=== PATIENT | male | born 1955 | race Caucasian/White ===

== ENCOUNTER 2019-06-16 10:24 | Emergency (ER) | payer OTHER ==
[~2019-06-16] VITALS: Ht 165.1 cm; Wt 54.4 kg
[2019-06-16 10:44] LABS: BASOPHILS % (AUTO) 0.3 % (0.0-2.0); EOSINOPHILS % (AUTO) 0.3 % (0.0-6.0); HEMATOCRIT 43 % (39-51); HEMOGLOBIN 14.3 g/dL (13.5-17.5); LYMPHOCYTES # (AUTO) 1.1 /CMM (0.8-4.8); LYMPHOCYTES % (AUTO) 13.4 % (20.0-44.0); MEAN CORPUSCULAR HGB CONC 34 g/dl (31.0-36.0); MEAN CORPUSCULAR VOLUME 94 fL (80-96); MONOCYTES # (AUTO) 0.7 /CMM (0.1-1.30); MONOCYTES % (AUTO) 9.4 % (2.0-12.0); NEUTROPHILS % (AUTO) 76.6 % (43.0-81.0); PLATELET COUNT (AUTO) 253 /CMM (150-450); RED BLOOD CELL COUNT(AUTO) 4.54 MIL/uL (4.5-6.0); WHITE BLOOD COUNT (AUTO) 7.8 K/uL (4.3-11.0)
[2019-06-16 10:51] LABS: CALCIUM, SERUM 9.7 mg/dL (8.5-10.1); CARBON DIOXIDE 19 mmol/L (21-32); CHLORIDE 99 mmol/L (98-107); CREATININE 0.9 mg/dL (0.6-1.3); GLUCOSE 119 mg/dL (74-106); POTASSIUM 4.6 mmol/L (3.5-5.1); SODIUM SERUM 135 mmol/L (136-145); UREA NITROGEN, BLOOD 11 mg/dL (7-18)
[2019-06-16] MEDS ORDERED: LORAZEPAM 1 MG TABLET ONE ×3 (10:55→14:10)
[2019-06-16] MEDS ORDERED: LORAZEPAM 1 MG TABLET PO ONE ×2 (11:00→14:30)
--- NOTE | 2019-06-16 11:01 | NUR ---
BIB RA 39 FROM [facility] VN, HYPERVENTILATING/TACHYCARDIC. ON ROOM AIR, BREATHING EVENLY AND UNLABORED. CONNECTED TO THE MONITOR AND PULSE OX. SITTER AT BEDSIDE FOR CONSTANT MONITORING.
[2019-06-16 11:03] LABS: ALANINE AMINOTRANSFERASE 28 U/L (12-78); ALBUMIN 4.3 g/dL (3.4-5.0); ALKALINE PHOSPHATASE 105 U/L (46-116); ASPARTATE AMINOTRANSFERASE 93 U/L (15-37); B-TYPE NATRIURETIC PEPTIDE 116 PG/ML (0-125); BILIRUBIN,TOTAL 0.8 mg/dL (0.2-1.0); TOTAL PROTEIN, SERUM 9.1 g/dL (6.4-8.2)
[2019-06-16] MEDS ORDERED: ZIPRASIDONE MESYLATE 20 MG/VIAL VIAL IM ONE ×2 (11:41→12:00)
--- NOTE | 2019-06-16 13:13 | NUR ---
RYAN MARTIN ETA 1530 TRIP#[id number]
--- NOTE | 2019-06-16 13:19 | NUR ---
KP, INTAKE AT SO JACQUELIN EDWARD
[2019-06-16 15:23] VITALS: BP 113/81
--- NOTE | 2019-06-16 15:24 | NUR ---
patient left in stable condition and medically cleared by MD, going back to [facility].
== END 2019-06-16 15:24 ==
LOC: ER 10:25
DX: R00.0 Tachycardia, unspecified (principal); R06.4 Hyperventilation; K21.9 Gastro-esophageal reflux disease without esophagitis; F25.9 Schizoaffective disorder, unspecified; F29 Unspecified psychosis not due to a substance or known physiological condition; N40.0 Benign prostatic hyperplasia without lower urinary tract symptoms; F10.10 Alcohol abuse, uncomplicated; F17.200 Nicotine dependence, unspecified, uncomplicated; Y90.9 Presence of alcohol in blood, level not specified; Z60.2 Problems related to living alone
CPT/HCPCS: 36415; 80053; 83880; 84484; 85025; 93005; 96372; 99285; J3486